=== PATIENT | female | born 1980 | race Caucasian/White ===

== ENCOUNTER → 2020-10-16 | Outpatient (CLI) | payer MEDICARE ==
--- NOTE | 2020-10-16 18:15 | US ---
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 Patient has a history of breast cancer. LMP unknown. Patient states she had a bilateral oophorecto my in 2016. Bleeding x 3 weeks. . Hx 2 C Sections. TECHNIQUE: Transvaginal (TV). Date of LMP: Unknown. FINDINGS: EXAM MEASUREMENTS: Uterus: Not well delineated. There is bulky rounded appearance to the region of the cervix measuring 4.6 x 5.3 x 4.2 cm. Just above and towards the right, there is a contiguous heterogeneous slightly irregular area measuri ng 3.9 x 2.8 x 2.7 cm. Endometrial Stripe: Not well seen. Right Ovary: Removed per patient. Left Ovary: Removed per patient. No pelvic free fluid seen. IMPRESSION: 1. Bulky rounded appearance to the region of the cervix measuring 5.3 cm. The uterus itself is not we ll seen. Correlate with speculum exam to exclude any cervical mass. 2. The uterus itself is not well delineated. If no prior hysterectomy, consider female pelvic MRI to better delineate these structures. 3. A heterogeneous irregular area measuring 3.9 x 2.8 x 2.7 cm just above the cervix off to the right . Unclear etiology. Query shrunken and abnormal uterus versus some type of pelvic mass. Again, MRI ma y be helpful.
== END | disposition home or self-care (01) ==
LOC: RADUSWWP 16:42
PROVIDERS: ATTEND Internal Medicine Hematology & Oncology
DX: Z15.02 Genetic susceptibility to malignant neoplasm of ovary (principal)
CPT/HCPCS: 76830

== ENCOUNTER → 2020-10-23 | Outpatient (CLI) | payer MEDICARE ==
--- NOTE | 2020-10-23 12:35 | XR ---
EXAMINATION TYPE: XR chest 2V DATE OF EXAM: 10/23/2020 COMPARISON: NONE HISTORY: History of breast cancer. TECHNIQUE: Frontal and lateral views of the chest are obtained. FINDINGS: Mild biapical pleural/parenchyma scarring. There is no suspicious new focal air space opac ity, pleural effusion, or pneumothorax seen. The cardiac silhouette size is within normal limits. The osseous structures are intact. Asymmetry to the breast shadows with overlying implants. IMPRESSION: No acute cardiopulmonary process.
--- NOTE | 2020-10-23 12:53 | CT ---
EXAMINATION TYPE: CT abdomen pelvis w con DATE OF EXAM: 10/23/2020 HISTORY: post menopausal bleeding, and genetic predisposition to ovarian neoplasm. Personal history o f breast cancer. History of bilateral nephrectomy 2016. CT DLP: 1435mGycm Automated Exposure Control for Dose Reduction was Utilized. CONTRAST: CT scan of the abdomen and pelvis is performed with IV Contrast, patient injected with 100 mL of Isov ue 300. COMPARISON: Pelvic ultrasound one week ago. FINDINGS: LUNG BASES: No significant abnormality is appreciated. LIVER/GB: No significant abnormality is appreciated. PANCREAS: No significant abnormality is seen. SPLEEN: No significant abnormality is seen. ADRENALS: No significant abnormality is seen. KIDNEYS: Symmetric cortical medullary uptake and excretion without concerning solid or cystic renal m ass, suggestion of symmetric mild to minimal bilateral hydronephrosis. Visualization of bilateral ure ters without obstructing mass or calculus. There is 6 mm nonobstructing left renal calculus upper to midpole level coronal image 55 BOWEL: Oral contrast reaches level proximal transverse colon. No suspicious small or large bowel dila tation. Stomach is poorly distended and less slightly suboptimally evaluated. Slightly low lying cecu m into the right pelvis. Normal-appearing appendix coronal image 37 for reference UTERUS/ADNEXA: Anteverted uterus. Central endometrium towards the fundus measures up to 7 mm coronal image 50. This measures up to 10 mm inferiorly coronal image 51 with abrupt cut off. The lower uterin e segment into the cervix shows heterogeneous prominence measuring 4.7 cm craniocaudal dimension sagi ttal image 35 x 6.3 cm transversely by 4.5 cm AP diameter axial image 70. Small foci of air along the vaginal canal are present inferiorly to this. Single left-sided pelvic phlebolith on axial image 74. LYMPH NODES: No greater than 1cm abdominal or pelvic lymph nodes are appreciated. OSSEOUS STRUCTURES: No significant abnormality is seen. OTHER: Moderate to large sized umbilical hernia containing fat and tiny umbilical vessels.. IMPRESSION: Prominence of the lower uterine segment/cervix in which cervical neoplasm needs to be str ongly considered. Correlate clinically. Pelvic MRI can be performed to further evaluate if desired.
== END ==
LOC: RADCTMAIN 10:40
PROVIDERS: ATTEND Obstetrics & Gynecology
DX: N95.0 Postmenopausal bleeding (principal); R19.00 Intra-abdominal and pelvic swelling, mass and lump, unspecified site; Z85.3 Personal history of malignant neoplasm of breast; Z90.13 Acquired absence of bilateral breasts and nipples; C53.9 Malignant neoplasm of cervix uteri, unspecified; Z90.5 Acquired absence of kidney
CPT/HCPCS: 74177; 71046; Q9967

== ENCOUNTER → 2021-01-05 | Outpatient (CLI) | payer MEDICARE, OTHER ==
--- NOTE | 2021-01-06 02:24 | MR ---
EXAMINATION TYPE: MR pelvis wo/w con DATE OF EXAM: 01/05/2021 COMPARISON: 3 views HISTORY: Endocervix stage 3 ca, hx of breast ca CONTRAST: Standard multiplanar, multisequence MRI departmental protocol utilizing 8.5 mL intravenous Gadavist g adolinium contrast. There is 6.5 x 3.6 cm irregular mass at the vaginal vault consistent with a cervical mass. This mass measures 6.7 x 5.4 cm on previous exam. There appears to be hysterectomy. Rectum appears normal. Ther e is no free fluid in the pelvis. The bladder distends smoothly. Urinary bladder wall is intact. Cerv ical mass is mostly enhancing. Enhancement pattern is more uniform than last exam. The bony pelvis is intact. I see no adenopathy along the pelvic sidewall. There is no inguinal hernia . Sacroiliac joints appear normal. Hip joints appear normal. IMPRESSION: Cervical mass consistent with malignant tumor that is slightly smaller than previous exam. No extensi on seen.
== END | disposition home or self-care (01) ==
LOC: RADMRIMAIN 08:30
PROVIDERS: ATTEND Radiology Radiation Oncology
DX: C53.1 Malignant neoplasm of exocervix (principal); Z01.812 Encounter for preprocedural laboratory examination; Z85.3 Personal history of malignant neoplasm of breast
CPT/HCPCS: 72197; U0003; C9803; U0005; A9585

== ENCOUNTER → 2021-02-23 | Outpatient (CLI) | payer MEDICARE ==
--- NOTE | 2021-02-25 09:55 | PE ---
EXAMINATION TYPE: PET CT fusion skull to thigh DATE OF EXAM: 02/23/2021 CLINICAL HISTORY: Cervical cancer progress study. Completed radiation and chemotherapy treatment 3 we eks ago. History of right breast cancer 2014 treated with bilateral mastectomy. TECHNIQUE: Following the intravenous administration of 11.16 mCi of F-18 FDG, whole body images are performed from the skull base to the midthigh. Images are reviewed on the computer in the coronal, axial, and sagittal planes. Reconstructed rotating images are created on independent workstation and reviewed on the computer. A non-contrast CT is performed in conjunction with the PET scan. Blood g lucose level equals 107. COMPARISON: Outside PET/CT November 09, 2020. CT abdomen and pelvis October 23, 2020. More recent outs maris MRI abdomen and pelvis FINDINGS: SKULL BASE AND NECK: No new areas of suspicious hypermetabolic uptake. CHEST, MEDIASTINUM, AND HILAR REGION: No new areas of suspicious hypermetabolic uptake. ABDOMEN AND PELVIS: Marked improvement in abnormal hypermetabolic uptake and diminished size to the c ervical mass or neoplasm measuring approximately 3.8 x 2.8 cm current study axial image 227. No resid ual abnormal hypermetabolic uptake identified at this level. There is normal excretion in the bladder and more prominent nonspecific uptake within the lumen of the adjacent sigmoid rectal colon. No residual suspicious external iliac chain lymph nodes bilaterally near image 219 current study. Pro minent lymph nodes prior study left greater than right have decreased in size. No new areas of abnormal hypermetabolic uptake. OSSEOUS STRUCTURES: No new areas of abnormal hypermetabolic uptake. OTHER CT: Bilateral breast implants are redemonstrated. Persistent moderate-sized umbilical hernia co ntaining fat and tiny mesenteric vessels. IMPRESSION: Complete positive treatment response as detailed above. No new or residual areas of abnor mal hypermetabolic uptake noted.
== END | disposition home or self-care (01) ==
LOC: RADPETMAIN 11:55
PROVIDERS: ATTEND Radiology Radiation Oncology
DX: C53.0 Malignant neoplasm of endocervix (principal); Z85.3 Personal history of malignant neoplasm of breast; Z90.13 Acquired absence of bilateral breasts and nipples
CPT/HCPCS: 78815; A9552

== ENCOUNTER → 2021-06-01 | Outpatient (CLI) | payer MEDICARE | END | disposition home or self-care (01) | LOC: RADPETMAIN 13:24 | PROVIDERS: ATTEND Radiology Radiation Oncology | DX: Z53.9 Procedure and treatment not carried out, unspecified reason (principal) ==

== ENCOUNTER → 2021-06-08 | Outpatient (CLI) | payer MEDICARE ==
--- NOTE | 2021-06-12 06:25 | PE ---
EXAMINATION TYPE: PET CT fusion skull to thigh DATE OF EXAM: 06/08/2021 COMPARISON: Prior PET/CT February 23, 2021 and older studies HISTORY: Cervical cancer diagnosed 2020 completed chemotherapy and radiation in January 2021, history o f right-sided breast cancer treated 2013 and 2014. BRCA1 positive. TECHNIQUE: Following the intravenous administration of 13.12 mCi of F-18 FDG, whole body images are performed from the skull base to the midthigh. Images are reviewed on the computer in the coronal, a xial, and sagittal planes. Reconstructed rotating images are created on independent workstation and reviewed on the computer. A localization and attenuation correction CT is performed in conjunction with the PET scan. Blood glucose level equals 100 SCAN: Subsequent Scan FINDINGS: SKULL BASE AND NECK: No new areas of suspicious hypermetabolic uptake. CHEST, MEDIASTINUM, AND HILAR REGION: No new areas of suspicious hypermetabolic uptake. ABDOMEN AND PELVIS: Stable mildly prominent cervix axial image 179 without new abnormal hypermetaboli c uptake identified at this level. There is normal excretion in the bladder and nonspecific uptake wi thin the lumen of the adjacent sigmoid rectal colon. No recurrent suspicious external iliac chain lymph nodes . No new areas of abnormal hypermetabolic uptake. OSSEOUS STRUCTURES: No new areas of abnormal hypermetabolic uptake. OTHER CT: Bilateral subpectoral breast implants are redemonstrated. Stable 6 mm nonobstructing left r enal calculus on axial image 143. Persistent moderate-sized umbilical hernia containing fat and tiny mesenteric vessels. Single left-sided pelvic phleboliths axial image 231 redemonstrated IMPRESSION: Complete positive treatment response as detailed above remains present. No new or recurre nt areas of abnormal hypermetabolic uptake identified on today's study.
== END | disposition home or self-care (01) ==
LOC: RADPETMAIN 12:49
PROVIDERS: ATTEND Radiology Radiation Oncology
DX: C53.0 Malignant neoplasm of endocervix (principal); C77.9 Secondary and unspecified malignant neoplasm of lymph node, unspecified; N20.0 Calculus of kidney; K42.9 Umbilical hernia without obstruction or gangrene; Z85.3 Personal history of malignant neoplasm of breast; Z85.42 Personal history of malignant neoplasm of other parts of uterus
CPT/HCPCS: 78815; A9552

== ENCOUNTER → 2021-09-18 | Outpatient (CLI) | payer MEDICARE, OTHER ==
--- NOTE | 2021-09-18 22:39 | CT ---
EXAMINATION TYPE: CT abdomen pelvis w con DATE OF EXAM: 09/18/2021 HISTORY: obs for mets ; h/o breast and cervical cancer CT DLP: 797mGycm Automated Exposure Control for Dose Reduction was Utilized. CONTRAST: CT scan of the abdomen and pelvis is performed with IV Contrast, patient injected with 100 mL of Isov ue 300. COMPARISON: CT abdomen and pelvis October 23, 2020. Most recent PET CT June 08, 2021 and older [facility]. FINDINGS: LUNG BASES: Partial visualization of right breast implant. LIVER/GB: Contracted gallbladder current study. PANCREAS: Fullness to the body and tail of pancreas is redemonstrated and stable presumed benign. SPLEEN: No significant abnormality is seen. ADRENALS: No significant abnormality is seen. KIDNEYS: Symmetric cortical medullary uptake and excretion without concerning solid or cystic renal m ass. Suggestion of stable symmetric mild to minimal bilateral hydronephrosis. No significant hydroure ter. There is stable 6 mm nonobstructing left renal calculus upper pole level coronal image 61. BOWEL: Oral contrast reaches level of hepatic flexure. No suspicious small or large bowel dilatation. Slightly low lying cecum into the right pelvis is redemonstrated. UTERUS/ADNEXA: Anteverted small size uterus redemonstrated. Central endometrium remains prominent but stable measuring up to 16 mm axial image 67 from most recent PET/CT. Appearance of cervix unchanged from most recent PET/CT. Single left-sided pelvic phlebolith on axial image 74. LYMPH NODES: No new greater than 1cm abdominal or pelvic lymph nodes are appreciated. OSSEOUS STRUCTURES: No significant abnormality is seen. OTHER: Moderate to large sized umbilical hernia containing fat and tiny umbilical vessels is redemons trated IMPRESSION: Overall stable findings from most recent PET/CT. Findings consistent with treated cervica l neoplasm redemonstrated. No new or enlarging mass or adenopathy identified to suggest active neopla stic recurrence.
== END | disposition home or self-care (01) ==
LOC: RADCTMAIN 17:23
PROVIDERS: ATTEND Obstetrics & Gynecology
DX: C53.9 Malignant neoplasm of cervix uteri, unspecified (principal); Z85.3 Personal history of malignant neoplasm of breast
CPT/HCPCS: 74177; Q9967

== ENCOUNTER → 2022-02-07 | Outpatient (CLI) | payer MEDICARE, OTHER ==
--- NOTE | 2022-02-08 08:30 | CT ---
EXAMINATION TYPE: CT abdomen pelvis wo/w con DATE OF EXAM: 02/07/2022 COMPARISON: 09/18/2021 INDICATION: obs for mets. neoplasm endocervix DLP: 1333.40 mGycm, Automated exposure control for dose reduction was used. CONTRAST: 100 mL of Isovue 300. Study performed with Oral Contrast TECHNIQUE: Axial images were obtained from above the diaphragm to the pubic rami in the axial plane a t 5 mm thick sections. Reconstructed images are reviewed on the computer in the coronal plane. FINDINGS: Limited CT sections are obtained the lung bases. The lung bases are clear. CT ABDOMEN: Liver: Normal Spleen: Normal Pancreas: Normal Adrenal glands: The adrenal glands are normal. Gallbladder: Normal Kidneys: No masses are evident. No hydronephrosis is present. No cysts are present. There is a 0.7 cm cortical calcification within the upper pole lateral left kidney. Aorta: Normal Inferior vena cava: Normal. CT PELVIS: There is an anterior abdominal wall periumbilical hernia containing mesenteric fat. The opening appears narrow as 0.7 cm. Loops of bowel within the abdomen and pelvis are normal. There are loops of bowel which are incom pletely distended or lack oral contrast limiting their evaluation. Segment of sigmoid colon within it s midportion is nondistended. Some focal wall thickening is not excluded. Consider additional workup of this region series 3 image 66. Appendix: Normal as visualized. Urinary bladder: Normal. Genitourinary structures: Uterus appears normal. Adnexal regions are normal. Osseous structures: No suspicious lytic or sclerotic lesions. IMPRESSIONS: 1. No suspicious changes for metastatic disease. Patient's known endocervical cancer is not visualiz ed on this exam. 2. Incomplete distention versus focal thickening within the sigmoid colon. Consider additional workup for neoplasm. 3. Nonobstructing left renal calcification
== END | disposition home or self-care (01) ==
LOC: RADCTMAIN 15:41
PROVIDERS: ATTEND Radiology Radiation Oncology
DX: C53.0 Malignant neoplasm of endocervix (principal); N28.89 Other specified disorders of kidney and ureter
CPT/HCPCS: 74178; Q9967

== ENCOUNTER → 2022-06-07 | Outpatient (CLI) | payer MEDICARE, OTHER ==
--- NOTE | 2022-06-07 14:11 | CT ---
EXAMINATION TYPE: CT ChestAbdPelvis w con DATE OF EXAM: 06/07/2022 COMPARISON: CT abdomen pelvis dated 02/07/2022. No prior CT chest. HISTORY: cervical and breast CA CT DLP: 850.9 mGycm Automated exposure control for dose reduction was used. CONTRAST: CT scan of the chest, abdomen and pelvis is performed with Oral Contrast and with IV Contrast, patien t injected with 70 mL of Isovue 300. FINDINGS: CT chest: The lungs are clear of consolidative, interstitial or masslike density. There is no pleural effusion, pleural thickening or pneumothorax. Great vessels chest are normal and there is no mediastinal, hilar or the osseous structures are intac t. CT abdomen and pelvis: There is no gallstone, gallbladder wall thickening, distention or pericholecystic fluid. There is no biliary ductal dilatation. No focal masses are seen, pancreas, spleen or adrenal glands. Caliber the abdominal aorta is. There is no retroperitoneal or no solid renal masses are. The bowel loops are normal in caliber and there is no evidence of obstruction. No inflammatory change s are identified in the bowel wall or mesentery. There is no free intraperitoneal air or fluid. There is no pelvic mass or adenopathy. The osseous structures are intact. IMPRESSION: 1. No evidence of metastatic disease. 2. Stable abdomen and pelvis. 3. Stable nonobstructing 7.7 mm left renal calculus.
== END | disposition home or self-care (01) ==
LOC: RADCTMAIN 12:08
PROVIDERS: ATTEND Radiology Radiation Oncology
DX: C77.9 Secondary and unspecified malignant neoplasm of lymph node, unspecified (principal); N20.0 Calculus of kidney; Z85.41 Personal history of malignant neoplasm of cervix uteri; Z90.710 Acquired absence of both cervix and uterus; Z90.722 Acquired absence of ovaries, bilateral
CPT/HCPCS: 71260; 74177; Q9967

== ENCOUNTER 2022-06-18 10:09 | Inpatient (IN) | payer MEDICARE, OTHER ==
--- NOTE | 2022-06-18 15:53 | ED ---
General Adult HPI - General Chief complaint: Abdominal Pain Stated complaint: abd pain Time Seen by Provider: 06/18/22 13:38 Source: patient Mode of arrival: ambulatory Limitations: no limitations - History of Present Illness Initial comments: Patient is 42 year old female who presents to the with pelvic pain and vaginal discharge ongoing for approximately 3 weeks. She reports that she saw her radiology oncologist approximately 2-3 weeks ago for similar complaints he completed a pelvic exam showing a small hole in her cervix area where her cervix was removed but reports that her other findings were stable except mild WBC elevation on UA which she was given macrobid for and then also given [place] for pain. She reports that she called her primary care provider and oncologist recommended presenting to the emergency room for further evaluation. She reports that her pain can be intense in the pelvic region at time. She is also complaining of occasional constipation. She reports decreased appetite causing weight loss and nausea without vomiting. She denies any fevers or chills. She was having overactive bladder but reports that upon taking tolterodine which was prescribed by her oncologist 2 doses she had an increase in her abdominal pain and consequently stopped taking the medication. In addition to her cervical cancer she has a past medical history of breast cancer and is BRCA positive on hormone receptor placido treatment. She also has a past medical history significant for chemo-induced neuropathy. - Related Data Home Medications Medication Instructions Recorded Confirmed Escitalopram [Lexapro] 10 mg PO HS 06/18/22 06/18/22 Exemestane [Aromasin] 25 mg PO HS 06/18/22 06/18/22 Allergies Allergy/AdvReac Type Severity Reaction Status Date / Time No Known Allergies Allergy Verified 06/18/22 17:23 Review of Systems ROS Statement: Those systems with pertinent positive or pertinent negative responses have been documented in the HPI. ROS Other: All systems not noted in ROS Statement are negative. Past Medical History Past Medical History: Cancer Additional Past Medical History / Comment(s): breast cancer has port in chest, neuropathy hands and feet-pt states d/t chemotherapy tx- per pt chemo to resume after delivery History of Any Multi-Drug Resistant Organisms: None Reported Past Surgical History: Breast Surgery, Section Additional Past Surgical History / Comment(s): rt breast mastectomy, port placment Past Anesthesia/Blood Transfusion Reactions: No Reported Reaction Past Psychological History: No Psychological Hx Reported Smoking Status: Never smoker Past Alcohol Use History: None Reported Past Drug Use History: None Reported - Past Family History Mother Family Medical History: No Reported History General Exam Limitations: no limitations General appearance: alert, in no apparent distress Head exam: Present: atraumatic, normocephalic, normal inspection Eye exam: Present: normal appearance, PERRL, EOMI. Absent: scleral icterus, conjunctival injection, periorbital swelling ENT exam: Present: normal exam, mucous membranes moist Neck exam: Present: normal inspection. Absent: tenderness, meningismus, lymphadenopathy Respiratory exam: Absent: respiratory distress, accessory muscle use GI/Abdominal exam: Present: soft, tenderness, normal bowel sounds. Absent: distended, guarding, rebound, rigid External exam: Present: normal external exam Speculum exam: Present: other (Cervix absent. Erythema at the posterior aspect of the vaginal vault with questionable fistula opening approximately 1 cm in diameter rounded without any overt drainage noted.) By manual exam: Present: adnexal tenderness, uterine tenderness Extremities exam: Present: normal inspection. Absent: pedal edema, joint swelling Back exam: Present: normal inspection Neurological exam: Present: alert, oriented X3, CN II-XII intact Psychiatric exam: Present: normal affect, normal mood Skin exam: Present: warm, dry, intact, normal color. Absent: rash Course Vital Signs 06/18/22 06/18/22 10:25 17:34 Temperature 97.8 F 98.1 F Pulse Rate 101 H 94 Respiratory 20 16 Rate Blood Pressure 133/66 102/72 O2 Sat by Pulse 100 98 Oximetry Medical Decision Making - Medical Decision Making 42-year-old presenting to the emergency room with complaints of vaginal discharge, foul odor bloody impairment at times with excessive flow ongoing for 3 weeks which was worked up by her radiologist oncologist a few weeks ago and seems to be worsening from a pain standpoint. Pelvic exam revealed inflammation in the posterior vaginal vault near where the cervix would be along the vaginal wall consistent with where the cervix would have been. No discharge at this time noted. Severe pelvic tenderness noted on exam. Per patient's request case discussed with Dr. Godwin who is her surgical oncologist and gynecology specialists from [facility]. He recommended admission to either [facility] or locally for pain management IV antibiotics and further evaluation and treatment. Recommendations from the patient's surgical biofuels production manager oncologist discussed with her at length. She wishes to remain locally. Dr. Garza about the Dr. Wolff in her previous surgery. Will contact him along with [facility] who covers for the patient's primary care provider for admission for pain management and further workup and evaluat ion. Case discussed with Aaliyah Kingston covering for [facility] who admits for patient primary care provider. She reports that she will call back regarding as needed for patient. Patient to be admitted for further evaluation by GI and IV antibiotics. Urinalysis positive for worsening UTI, leukocytosis worsening. Will start on PID treatment with ceftriaxone, doxycycline and Flagyl. Will continue pain medication of morphine along with Zofran as needed for nausea. Case discussed with Dr. Hamilton. - Lab Data Result diagrams: 06/18/22 17:21 06/18/22 17:21 Lab Results 06/18/22 06/18/22 06/18/22 Range/Units 17:21 17:21 17:21 WBC 12.5 H (3.8-10.6) k/uL RBC 4.86 (3.80-5.40) m/uL Hgb 15.1 (11.4-16.0) gm/dL Hct 45.9 (34.0-46.0) % MCV 94.5 (80.0-100.0) fL MCH 31.0 (25.0-35.0) pg MCHC 32.8 (31.0-37.0) g/dL RDW 12.4 (11.5-15.5) % Plt Count 412 (150-450) k/uL MPV 6.5 Neutrophils % 71 % Lymphocytes % 13 % Monocytes % 7 % Eosinophils % 8 % Basophils % 1 % Neutrophils # 8.8 H (1.3-7.7) k/uL Lymphocytes # 1.6 (1.0-4.8) k/uL Monocytes # 0.9 (0-1.0) k/uL Eosinophils # 0.9 H (0-0.7) k/uL Basophils # 0.1 (0-0.2) k/uL Sodium 138 (137-145) mmol/L Potassium 4.5 (3.5-5.1) mmol/L Chloride 98 (98-107) mmol/L Carbon Dioxide 25 (22-30) mmol/L Anion Gap 15 mmol/L BUN 12 (7-17) mg/dL Creatinine 0.71 (0.52-1.04) mg/dL Est GFR (CKD-EPI)AfAm >90 (>60 ml/min/1.73 sqM) Est GFR (CKD-EPI)NonAf >90 (>60 ml/min/1.73 sqM) Glucose 99 (74-99) mg/dL Calcium 10.3 H (8.4-10.2) mg/dL Total Bilirubin 0.4 (0.2-1.3) mg/dL AST 24 (14-36) U/L ALT 18 (4-34) U/L Alkaline Phosphatase 121 (38-126) U/L Total Protein 8.1 (6.3-8.2) g/dL Albumin 4.9 (3.5-5.0) g/dL Urine Color Yellow Urine Appearance Cloudy H (Clear) Urine pH 6.5 (5.0-8.0) Ur Specific [place] 1.016 (1.001-1.035) Urine Protein Trace H (Negative) Urine Glucose (UA) Negative (Negative) Urine Ketones 1+ H (Negative) Urine Blood Moderate H (Negative) Urine Nitrite Negative (Negative) Urine Bilirubin Negative (Negative) Urine Urobilinogen <2.0 (<2.0) mg/dL Ur Leukocyte Esterase Large H (Negative) Urine RBC 47 H (0-5) /hpf Urine WBC 40 H (0-5) /hpf Urine WBC Clumps Occasional H (None) /hpf Ur Squamous Epith Cells 1 (0-4) /hpf Urine Mucus Rare H (None) /hpf Disposition Clinical Impression: Pelvic pain, UTI (urinary tract infection), Vaginal discharge Disposition: ADMITTED IP TO THIS HOSP Condition: Stable Is patient prescribed a controlled substance at d/c from ED?: No Referrals: Francisca Stephenson MD [Primary Care Provider] - 1-2 days Time of Disposition: 18:38
[2022-06-18] MEDS ORDERED: ONDANSETRON 4 MG/2 ML VIAL IVP STA (16:03)
[2022-06-18] MEDS ORDERED: MORPHINE SULFATE 4 MG/ML SYRINGE IV STA (16:03)
[2022-06-18 17:45] LABS: Basophils # (A) 0.1 k/uL (0-0.2); Basophils % (A) 1 %; Eosinophils # (A) 0.9 k/uL (0-0.7); Eosinophils % (A) 8 %; HCT 45.9 % (34.0-46.0); HGB 15.1 gm/dL (11.4-16.0); Lymphocytes # (A) 1.6 k/uL (1.0-4.8); Lymphocytes % (A) 13 %; MCHC 32.8 g/dL (31.0-37.0); MCV 94.5 fL (80.0-100.0); Mean Platelet Volume 6.5; Monocytes # (A) 0.9 k/uL (0-1.0); Monocytes % (A) 7 %; Neutrophils # (A) 8.8 k/uL (1.3-7.7); Neutrophils % (A) 71 %; Platelet Count 412 k/uL (150-450); RBC 4.86 m/uL (3.80-5.40); RDW 12.4 % (11.5-15.5); WBC 12.5 k/uL (3.8-10.6)
--- NOTE | 2022-06-18 17:49 | US ---
EXAMINATION TYPE: US transvaginal DATE OF EXAM: 06/18/2022 COMPARISON: NONE CLINICAL HISTORY: Pelvic pain. Vaginal discharge. History of breast cancer and cervical cancer. Barney ateral oopherectomy in 2016 due to breast cancer per patient. TECHNIQUE: Transvaginal (TV Date of LMP: Unknown, approximately 20 years ago EXAM MEASUREMENTS: Uterus: 5.6 x 3.9 x 2.5 cm Endometrial Stripe: 0.28 cm Right Ovary: Surgically absent Left Ovary: Surgically absent 1. Uterus: Anteverted wnl 2. Endometrium: wnl 3. Right Ovary: Surgically absent 4. Left Ovary: Surgically absent 5. Bilateral Adnexa: wnl 6. Posterior cul-de-sac: wnl Cervix limited view due to overlying possible air in cervix area. IMPRESSION: No evidence of uterine mass. No endometrial thickening. Bilateral oophorectomy. No adnexal mass. No f ree fluid.
[2022-06-18 17:54] LABS: ALT 18 U/L (4-34); AST 24 U/L (14-36); African American GFR (CKD) >90 (>60 ml/min/1.73 sqM); Albumin 4.9 g/dL (3.5-5.0); Alkaline Phosphatase 121 U/L (38-126); Anion Gap 15 mmol/L; Blood Urea Nitrogen 12 mg/dL (7-17); Calcium 10.3 mg/dL (8.4-10.2); Carbon Dioxide 25 mmol/L (22-30); Chloride 98 mmol/L (98-107); Glucose 99 mg/dL (74-99); Non-African American GFR(CKD) >90 (>60 ml/min/1.73 sqM); Potassium 4.5 mmol/L (3.5-5.1); Sodium 138 mmol/L (137-145); Total Bilirubin 0.4 mg/dL (0.2-1.3); Total Protein 8.1 g/dL (6.3-8.2)
[2022-06-18 18:06] LABS: Appearance,Urine Cloudy (Clear); Bilirubin,Urine Negative (Negative); Blood,Urine Moderate (Negative); Color,Urine Yellow; Glucose,Urine (UA) Negative (Negative); Ketones,Urine 1+ (Negative); Leukocyte Esterase,Urine Large (Negative); Mucus,Urine Rare /hpf; Nitrite,Urine Negative (Negative); PH, Urine 6.5 (5.0-8.0); Protein,Urine Trace (Negative); RBC,Urine 47 /hpf (0-5); Specific Gravity,Urine 1.016 (1.001-1.035); Squamous Epithelial Cell,Urine 1 /hpf (0-4); Urobilinogen,Urine <2.0 mg/dL (<2.0); WBC,Urine 40 /hpf (0-5)
[2022-06-18] MEDS ORDERED: NALOXONE 0.4 MG/ML 1 ML VIAL IV PRN (18:32)
[2022-06-18] MEDS ORDERED: metroNIDAZOLE-NS PMX 500 MG in SALINE 1 100ML.BAG IVPB STA (18:34)
[2022-06-18] MEDS: MORPHINE SULFATE 4 MG/ML SYRINGE IV PRN (19:10)
[2022-06-18] MEDS: DOXYCYCLINE 100 MG CAP PO SCH (21:06)
[2022-06-19] MEDS: MORPHINE SULFATE 4 MG/ML SYRINGE IV PRN ×5 (01:17→23:03)
[2022-06-19] MEDS: ACETAMINOPHEN TAB 325 MG TAB PO PRN ×2 (04:33→08:39)
[2022-06-19] MEDS: DOXYCYCLINE 100 MG CAP PO SCH ×2 (08:37→22:19)
[2022-06-19] MEDS ORDERED: diphenhydrAMINE 25 MG CAP PO STA (10:50)
[2022-06-19] MEDS: ONDANSETRON 4 MG/2 ML VIAL IVP PRN ×2 (10:58→19:58)
[2022-06-19 11:54] VITALS: RESP 16
--- NOTE | 2022-06-19 12:12 | P.HPIM ---
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 Patient has had double mastectomy. She also has history of cervical cancer and underwent surgery and bilateral oophrectomy in 2016. She is a former smoker. She presents with complaints of pelvic pain and vaginal discharge that has been ongoing for about 3 weeks. States discharge is a brownish color. Patient saw her radiology oncologist about 2 to 3 weeks ago with similar complaints and had a pelvic exam that revealed a hole in cervix where her cervix was removed. She had a urinalysis performed then also and was placed on macrobid outpatient. She also saw specialist at [facility] for this 1 week ago and they had recommended PET scan and cervical biopsy, she has not had that scheduled yet. She gets routine pap smears with Dr Davalos every 6 weeks. She takes Aramosin daily. She reports increased pain in pelvic region and has decreased appetite with nausea, she has also had weight loss. She does complain of constipation. She reports getting up to urinate 8 to 10 times a night. She was given 2 doses of tolteridone by oncology for overactive bladder states she had increased abdominal pain and stopped taking medication. She does report 9/10 pressure in her pubic region and states the pressure radiates all the way through to her back/tail bone area. She is getting morphine for this and reports pain improving to 2/3 out of 10. She also reports migraine, has history of migraine. She is receiving zofran for nausea which is helping. Patient had chest abdomen pelvis CT done 2 weeks ago outpatient showing no evidence for metastatic disease, stable abdomen and pelvis there is stable non obstructing 7.7 mm left renal calculus. Patient had transvaginal ultrasound performed showing no evidence of uterine mass, no endometrial thickening. There is bilateral oophrectomy. No adnexal mass. No free fluid. View of cervix was limited due to overlying possible air in the cervix area. She presents with luekocytosis of 12.5, calcium is high at 10.3. Urinalysis showing cloudy urine, trace protein, moderate blood, 1+ ketones, large leukocyte esterase, 47 RBC, WBC 40, occassional WBC clumps and rare mucous . Urine culture is pending. Blood cultures are also pending. She has been placed on empiric antibiotic coverage with IV ceftriaxone and oral doxycycline. She also received a one time dose of metronidazole in the E.C. She is admitted for abdominal pain and work up for vaginal bleeding/discharge post cervix removal. Gynecology has been consulted. Patient is afebrile, heart rate 83, blood pressure 124/68, 95% on room air. REVIEW OF SYSTEMS: CONSTITUTIONAL: No fever, no malaise, no fatigue. HEENT: No recent visual problems or hearing problems. Denied any sore throat. CARDIOVASCULAR: No chest pain, orthopnea, PND, no palpitations, no syncope. PULMONARY: No shortness of breath, no cough, no hemoptysis. GASTROINTESTINAL: No diarrhea, reports nausea, vomiting, pelvic abdominal pressure and urinary frequency NEUROLOGICAL: No headaches, no weakness, no numbness. HEMATOLOGICAL: Denies any bleeding or petechiae. GENITOURINARY: Denies any burning micturition, frequency, or urgency. MUSCULOSKELETAL/RHEUMATOLOGICAL: Denies any joint pain, swelling, or any muscle pain. ENDOCRINE: Denies any polyuria or polydipsia. The rest of the 14-point review of systems is negative. PHYSICAL EXAMINATION: GENERAL: The patient is alert and oriented x3, not in any acute distress. Well developed, well nourished. HEENT: Pupils are round and equally reacting to light. EOMI. No scleral icterus. No conjunctival pallor. Normocephalic, atraumatic. No pharyngeal erythema. No thyromegaly. CARDIOVASCULAR: S1 and S2 present. No murmurs, rubs, or gallops. PULMONARY: Chest is clear to auscultation, no wheezing or crackles. ABDOMEN: Soft, tender to palpation pelvic region, nondistended, normoactive bowel sounds. No palpable organomegaly. MUSCULOSKELETAL: No joint swelling or deformity. EXTREMITIES: No cyanosis, clubbing, or pedal edema. NEUROLOGICAL: Gross neurological examination did not reveal any focal deficits. SKIN: No rashes. Assessment and Plan Assessment Pelvic/Abdominal pressure with associated nausea Vaginal discharge/bleeding ongoing work up Urinary frequency rule out retention Leukocytosis Hypercalcemia History cervical cancer post surgery and chemotherapy History breast cancer with bilateral mastectomy currently on immunotherapy daily History of bilateral oophrectomy Peripheral neuropathy chemotherapy induced History of migraines Former tobacco use GI prophylaxis Full Code Plan Pain management and antiemetics are on board IV fluids have been ordered Diet as tolerated Abdomen xray ordered Pending evaluation by gynecology Urine culture pending, continue empiric antibiotic coverage Blood culture pending Benadryl/Tramadol for migraine Patient is supposed to be scheduled for cervical biopsy/PET scan outpatient The impression and plan of care has been dictated by Terri Guidry, Nurse Practitioner as directed. Dr. Ruddy MD I have performed a history and physical examination and medical decision making of this patient, discussed the same with the dictator, and agree with the dictators assessment and plan as written, documented as a scribe. Based on total visit time, I have performed more than 50% of this visit. Past Medical History Past Medical History: Cancer Additional Past Medical History / Comment(s): breast cancer has port in chest, neuropathy hands and feet-pt states d/t chemotherapy tx- per pt chemo to resume after delivery; cervical cancer History of Any Multi-Drug Resistant Organisms: None Reported Past Surgical History: Breast Surgery, Section, Hysterectomy Additional Past Surgical History / Comment(s): double mastectomy, port placement Past Anesthesia/Blood Transfusion Reactions: No Reported Reaction Past Psychological History: No Psychological Hx Reported Smoking Status: Former smoker Past Alcohol Use History: Occasional Additional Past Alcohol Use History / Comment(s): quit smoking 2012 smoked 15 years on and off 1/2ppd Past Drug Use History: None Reported - Past Family History Mother Family Medical History: No Reported History Medications and Allergies Home Medications Medication Instructions Recorded Confirmed Type Escitalopram [Lexapro] 10 mg PO HS 06/18/22 06/18/22 History Exemestane [Aromasin] 25 mg PO HS 06/18/22 06/18/22 History Allergies Allergy/AdvReac Type Severity Reaction Status Date / Time No Known Allergies Allergy Verified 06/18/22 17:23 Physical Exam Vitals: Vital Signs Temp Pulse Pulse Resp BP BP Pulse Ox 06/19/22 07:55 97.7 F 83 14 123/68 95 06/19/22 05:37 97.7 F 94 18 115/77 96 06/18/22 22:33 97.4 F L 99 16 119/81 96 06/18/22 21:10 97.8 F 82 16 100/71 95 06/18/22 19:10 91 17 115/85 96 06/18/22 17:34 98.1 F 94 16 102/72 98 06/18/22 10:25 97.8 F 101 H 20 133/66 100 Intake and Output 06/18/22 06/19/22 06/19/22 22:59 06:59 14:59 Other: Voiding Method Toilet # Voids 2 Weight 83.915 kg Results CBC & Chem 7: 06/18/22 17:21 06/18/22 17:21 Labs: Abnormal Lab Results - Last 24 Hours (Table) 06/18/22 06/18/22 06/18/22 Range/Units 17:21 17:21 17:21 WBC 12.5 H (3.8-10.6) k/uL Neutrophils # 8.8 H (1.3-7.7) k/uL Eosinophils # 0.9 H (0-0.7) k/uL Calcium 10.3 H (8.4-10.2) mg/dL Urine Appearance Cloudy H (Clear) Urine Protein Trace H (Negative) Urine Ketones 1+ H (Negative) Urine Blood Moderate H (Negative) Ur Leukocyte Esterase Large H (Negative) Urine RBC 47 H (0-5) /hpf Urine WBC 40 H (0-5) /hpf Urine WBC Clumps Occasional H (None) /hpf Urine Mucus Rare H (None) /hpf Microbiology - Last 24 Hours (Table) 06/18/22 17:21 Urine Culture - Preliminary Urine,Voided Thrombosis Risk Factor Assmnt - Choose All That Apply Any of the Below Risk Factors Present?: Yes Each Factor Represents 1 point: Age 41-60 years, Obesity (BMI >25) Other Risk Factors: No Other congenital or acquired thrombophilia - If yes, enter type in comment: No Thrombosis Risk Factor Assessment Total Risk Factor Score: 2 Thrombosis Risk Factor Assessment Level: Low Risk
[2022-06-19] MEDS: SODIUM CHLORIDE 0.9% 1,000 ML IV SCH (12:44)
[2022-06-19] MEDS ORDERED: traMADol 50 MG TAB PO SCH (13:00)
--- NOTE | 2022-06-19 13:03 | XR ---
EXAMINATION TYPE: XR abdomen 2V DATE OF EXAM: 06/19/2022 12:35 PM INDICATION: Patient age:Female; 42 years old; Reason for study: abdominal/pelvic pain; . COMPARISON: CT chest abdomen pelvis 06/07/2022. TECHNIQUE: Two views of the abdomen were obtained. FINDINGS: The bowel gas pattern is nonspecific without dilated loops of small or large bowel. There i s no evidence for organomegaly or pneumoperitoneum. The osseous structures are intact. Left upper p ole renal calculus measuring 5 mm. Pelvic phlebolith present. Fecal material and gas are demonstrated throughout the colon and rectum. Mild multilevel disc degeneration changes throughout the spine. IMPRESSION: 1. Nonspecific bowel gas pattern without radiographic evidence for acute process. 2. Left upper pole renal calculus
[2022-06-19 13:09] VITALS: BMI 28.1
[2022-06-19] MEDS ORDERED: traMADol 50 MG TAB PO PRN (15:54)
[2022-06-19] MEDS ORDERED: bisacodyL 10 MG SUPP RECTAL STA (16:25)
--- NOTE | 2022-06-19 19:22 | P.OBCN ---
History of Present Illness Consult date: 06/19/22 Requesting physician: Zulay Fox Reason for consult: pelvic pain, pelvic infection Chief complaint: Pelvic and abdominal pain with bloody/watery vaginal discharge History of present illness: This is a 42-year-old female who is well-known to [facility] oncology, Dr. Godwin, and radiation oncology with Dr. Davalos. She has a history of BRCA1 and was diagnosed with breast cancer in 2013. She was treated with chemotherapy and bilateral mastectomy along with chest wall radiation. She had a section and oophorectomy performed in 2015 but her uterus was not removed. 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 She underwent chemoradiation along with brachytherapy and finished this in January 2021. She has seen Dr. Davalos for this bloody discharge and cramping about a month ago and he stated it was some scar tissue. She has since had vomiting and pain and has lost 10-12 pounds over the last couple weeks. She does not want to eat anything or drink anything because when her bladder is full it causes more pain. She states she is going to the bathroom approximately 10 times a night. Her last bowel movement was 2 days ago. She stated she did see Dr. Davalos earlier today who was going to contact Dr. Godwin about possible transfer but has not heard back from him. Pelvic ultrasound done on admission shows a normal size uterus with endometrial stripe of 0.28 cm and both ovaries surgically absent. There is no evidence of uterine mass or free fluid noted. Review of Systems Constitutional: Reports chronic pain, Reports fatigue, Reports night sweats, Reports weight loss Gastrointestinal: Reports abdominal pain, Reports constipation, Reports nausea, Reports vomiting Genitourinary: Reports abnormal vaginal bleeding, Reports dysuria, Reports pelvic pain, Reports urinary frequency, Reports vaginal discharge, Reports vaginal odor Past Medical History Past Medical History: Cancer Additional Past Medical History / Comment(s): breast cancer has port in chest, neuropathy hands and feet-pt states d/t chemotherapy tx; cervical cancer History of Any Multi-Drug Resistant Organisms: None Reported Past Surgical History: Breast Surgery, Section Additional Past Surgical History / Comment(s): double mastectomy, port placement; bilateral oophorectomy Past Anesthesia/Blood Transfusion Reactions: No Reported Reaction Past Psychological History: No Psychological Hx Reported Smoking Status: Former smoker Past Alcohol Use History: Occasional Additional Past Alcohol Use History / Comment(s): quit smoking 2013 smoked 15 years on and off 1/2ppd Past Drug Use History: None Reported - Past Family History Mother Family Medical History: No Reported History Medications and Allergies Home Medications Medication Instructions Recorded Confirmed Type Escitalopram [Lexapro] 10 mg PO HS 06/18/22 06/18/22 History Exemestane [Aromasin] 25 mg PO HS 06/18/22 06/18/22 History Allergies Allergy/AdvReac Type Severity Reaction Status Date / Time No Known Allergies Allergy Verified 06/18/22 17:23 Exam Osteopathic Statement: *. No significant issues noted on an osteopathic structural exam other than those noted in the History and Physical/Consult. Vital Signs Temp Pulse Pulse Resp BP BP Pulse Ox 06/19/22 17:51 97.8 F 80 16 116/76 98 06/19/22 16:32 98.5 F 89 16 105/69 97 06/19/22 11:26 97.8 F 70 16 103/68 97 06/19/22 07:55 97.7 F 83 14 123/68 95 06/19/22 05:37 97.7 F 94 18 115/77 96 06/18/22 22:33 97.4 F L 99 16 119/81 96 06/18/22 21:10 97.8 F 82 16 100/71 95 Intake and Output 06/19/22 06/19/22 06/19/22 06:59 14:59 22:59 Intake Total 290 Balance 290 Intake: Intake, IV Titration 290 Amount Sodium Chloride 0.9% 1, 240 000 ml @ 75 mls/hr IV . [id number] HANS Rx#:[id number] [id number] 1 gm In 50 Sodium Chloride 0.9% 50 ml @ 100 mls/hr IVPB DAILY HANS Rx#:[id number] Other: Voiding Method Toilet # Voids 2 1 Weight 83.915 kg Exam is not performed on the patient since she is requesting to go to [facility]. Results Result Diagrams: 06/18/22 17:21 06/18/22 17:21 Microbiology - Last 24 Hours (Table) 06/18/22 17:21 Urine Culture - Preliminary Urine,Voided Assessment and Plan (1) Cervical cancer Current Visit: Yes Status: Acute Code(s): C53.9 - MALIGNANT NEOPLASM OF CERVIX UTERI, UNSPECIFIED SNOMED Code(s): 597664637 (2) Pelvic pain Current Visit: Yes Status: Acute Code(s): R10.2 - PELVIC AND PERINEAL PAIN SNOMED Code(s): 58063776 (3) UTI (urinary tract infection) Current Visit: Yes Status: Acute Code(s): N39.0 - URINARY TRACT INFECTION, SITE NOT SPECIFIED SNOMED Code(s): 67424646 (4) Vaginal discharge Current Visit: Yes Status: Acute Code(s): N89.8 - OTHER SPECIFIED NONINFLAMMATORY DISORDERS OF VAGINA SNOMED Code(s): 021876664 Plan: I personally spoke with Dr. Godwin after seeing this patient. He was under the assumption after speaking with Dr. Davalos earlier today that the patient had to go home to make arrangements for her family and then she was supposed to be coming to [facility]. Apparently this was never communicated to the patient. I did talk with the patient and advised her that after she does go home and make arrangements for kids and dogs but she should go down to [facility] ER on [address]. They will contact Dr. Godwin for ad mission. I communicated this to her nurse and they are contacting her admitting doctor for discharge. Patient is aware to go to [place] ER after she is discharged.
[2022-06-19] MEDS ORDERED: ESCITALOPRAM 10 MG TAB PO SCH (21:00)
[2022-06-19] MEDS: FAMOTIDINE 20 MG/2 ML VIAL IV SCH (22:05)
[2022-06-19 22:41] LABS: Glucose,Whole Blood 116 mg/dL (70-110)
--- NOTE | 2022-06-19 22:50 | P.DS ---
Providers Date of admission: 06/18/22 19:43 Attending physician: Zulay Fox Consults: 06/18/22 18:32 Consult Physician Routine Consulting Provider: Thang Garza Consult Reason/Comments: vaginal bleed post cervix removal with possible fistula Do you want consulting provider notified?: Yes Primary care physician: Francisca Stephenson Hospital Course: Diagnosis Pelvic/Abdominal pressure with associated cramping Vaginal discharge/bleeding ongoing work up Urinary frequency Nausea with vomiting, decreased appetite and weight loss Leukocytosis Hypercalcemia History of BRCA1 mutation History of breast cancer in 2013 with chemo/radiation and bilateral mastectomy History of with bilateral oophorectomy in 2015 History of cervical cancer in 2020 with chemoradiation/brachytherapy Peripheral neuropathy chemotherapy induced History of migraines Former tobacco use GI prophylaxis Full Code Discharge Disposition Patient is pending hospital to hospital transfer to [facility] in [place] to be further evaluated by Dr Ortiz who is patients known manager study-oncologist. 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 Patient has had double mastectomy. She also has history of with bilateral oophrectomy in 2015. She was diagnosed with cervical cancer in 2020. She is a former smoker. She presents with complaints of pelvic pain and vaginal discharge that has been ongoing for about 3 weeks. States discharge is a brownish color. Patient saw her radiology oncologist about 2 to 3 weeks ago with similar complaints and had a pelvic exam that revealed scar tissue. She had a urinalysis performed then also and was placed on macrobid outpatient. She also saw specialist at [facility] for this 1 week ago and they had recommended PET scan and cervical biopsy, she has not had that scheduled yet. She gets routine pap smears with Dr Davalos every 6 months. She takes Aramosin daily. She reports increased pain in pelvic region and has decreased appetite with nausea, she has also had weight loss. She does complain of constipation, last BM 2 days ago. She reports getting up to urinate 8 to 10 times a night. She was given 2 doses of tolteridone by oncology for overactive bladder states she had increased abdominal pain and stopped taking medication. She does report 9/10 pressure in her pubic region and states the pressure radiates all the way through to her back/tail bone area. She is getting morphine for this and reports pain improving to 2/3 out of 10. She also reports migraine, has history of migraine. Migraine is unrelieved with current medications. She is receiving zofran for nausea which is helping. She did receive a suppository for constipation found on xray. Patient had chest abdomen pelvis CT done 2 weeks ago outpatient showing no evidence for metastatic disease, stable abdomen and pelvis there is stable non obstructing 7.7 mm left renal calculus. Patient had transvaginal ultrasound performed showing no evidence of uterine mass, no endometrial thickening. There is bilateral oophrectomy. No adnexal mass. No free fluid. View of cervix was limited due to overlying possible air in the cervix area. She presents with luekocytosis of 12.5, calcium is high at 10.3. Hgb stable at 15.1. Urinalysis showing cloudy urine, trace protein, moderate blood, 1+ ketones, large leukocyte esterase, 47 RBC, WBC 40, occassional WBC clumps and rare mucous. Urine culture is pending. Blood cultures are also pending. She has been placed on empiric antibiotic coverage with IV ceftriaxone and oral doxycycline. She also received a one time dose of metronidazole in the E.C. She is admitted for abdominal pain and work up for vaginal bleeding/discharge post cervix removal. Abdominal xray was completed which shows nonspecific bowel gas pattern without radiographic evidence for acute process, there is left upper pole renal calculus measuring 5 mm. There is fecal material and gas demonstrated throughout the spine. Patient is afebrile, heart rate 83, blood pressure 124/68, 95% on room air. She was admitted with consult placed to Gynecology. Patient did talk with Dr Davalos earlier today who had spoke with her manager study-oncologist Dr Ortiz who had recommended patient to be discharged and drive herself to [facility] for ad mission. This was not communicated until later this evening. After discussing with Dr Davalos as well as reviewing gynecology notes, spoke with transfer team and requested transfer for manager study-onc services. After reaching out to Dr Ortiz, patient is pending acceptance/bed at [facility] in [place]. Patient feels she is in no condition to drive and experiencing significant abdominal discomfort. Please see medical H and P for additional information The impression and plan of care has been dictated by Terri Guidry, Nurse Practitioner as directed. Dr. Ruddy MD I have performed a history and physical examination and medical decision making of this patient, discussed the same with the dictator, and agree with the dictators assessment and plan as written, documented as a scribe. Based on total visit time, I have performed more than 50% of this visit. Plan - Discharge Summary New Discharge Prescriptions: No Action Exemestane [Aromasin] 25 mg PO HS Escitalopram [Lexapro] 10 mg PO HS Discharge Medication List Escitalopram [Lexapro] 10 mg PO HS 06/18/22 [History] Exemestane [Aromasin] 25 mg PO HS 06/18/22 [History] Follow up Appointment(s)/Referral(s): Francisca Stephenson MD [Primary Care Provider] - 1-2 days
[2022-06-20] MEDS: MORPHINE SULFATE 4 MG/ML SYRINGE IV PRN ×2 (05:17→09:00)
[2022-06-20] MEDS: SODIUM CHLORIDE 0.9% 1,000 ML IV SCH (05:21)
[2022-06-20] MEDS: FAMOTIDINE 20 MG/2 ML VIAL IV SCH (07:54)
[2022-06-20] MEDS: DOXYCYCLINE 100 MG CAP PO SCH (07:55)
[2022-06-20] MEDS ORDERED: LACTULOSE 20 GM/30 ML CUP PO ONE (10:49)
[2022-06-20 11:00] LABS: Basophils # (A) 0.06 X 10*3/uL (0.00-0.10); Basophils % (A) 0.6 %; Eosinophils # (A) 0.78 X 10*3/uL (0.04-0.35); Eosinophils % (A) 8.4 %; HCT 38.1 % (37.2-46.3); HGB 12.6 g/dL (12.0-15.0); Immature Grans, Automated 0.3 %; Lymphocytes % (A) 16.1 %; MCH 31.2 pg (27.0-32.0); MCHC 33.1 g/dL (32.0-37.0); MCV 94.3 fL (80.0-97.0); Monocytes # (A) 1.24 X 10*3/uL (0.20-1.00); Monocytes % (A) 13.3 %; NRBC Per 100 WBC 0 /100 WBCS (0.0-0.0); Neutrophils % (A) 61.3 %; Platelet Count 316 X 10*3/uL (140-440); RBC 4.04 X 10*6/uL (4.10-5.20); RDW 12.6 % (11.5-14.5); WBC 9.31 X 10*3/uL (4.50-10.00)
[2022-06-20 11:45] VITALS: BP 115/78; PULSE 86; TEMP 97.7
[2022-06-20] MEDS ORDERED: KETOROLAC 15 MG/ML 1 ML VIAL IVP SCH (12:00)
--- NOTE | 2022-06-21 16:04 | P.DS ---
Providers Date of admission: 06/18/22 19:43 Attending physician: Zulay Fox Consults: 06/18/22 18:32 Consult Physician Routine Consulting Provider: Thang Garza Consult Reason/Comments: vaginal bleed post cervix removal with possible fistula Do you want consulting provider notified?: Yes 06/20/22 10:42 Consult Physician Routine Consulting Provider: Geovani Davalos Consult Reason/Comments: patient of record Do you want consulting provider notified?: Yes Primary care physician: Francisca Stephenson Hospital Course: Diagnosis Pelvic/Abdominal pressure with associated cramping Vaginal discharge/bleeding gynecology following has not been diagnosed by gynecology. Urinary frequency Nausea with vomiting, decreased appetite and weight loss Leukocytosis Hypercalcemia History of BRCA1 mutation History of breast cancer in 2013 with chemo/radiation and bilateral mastectomy History of with bilateral oophorectomy in 2015 History of cervical cancer in 2020 with chemoradiation/brachytherapy Peripheral neuropathy chemotherapy induced History of migraines Former tobacco use GI prophylaxis Full Code Discharge Disposition Patient is stable for discharge and to follow up with her primary care and her application packaging consultant-oncologist. She was pending transfer to [facility] and bed was unavailable. Patient has been receiving narcotics for pain management and vaginal discharge has been stable since admission although continues and is malodorous. She is discharged on antibiotics. She was instructed to report to the [facility] ER to see her application packaging consultant oncology Dr Ortiz for further testing and recommendations. This was discussed with her by Dr Davalos who patient also follows with, she has also been in communication with Dr. Ortiz and also gynecology. Hospital Course This is a 42 year old female who follows with Dr Stpehenson, past medical history of breast cancer and BRCA positive with port in chest, neuropathy to hands and feet secondary to chemotherapy. Patient has had double mastectomy. She also has history of with bilateral oophrectomy in 2015. She was diagnosed with cervical cancer in 2020. She is a former smoker. She presents with complaints of pelvic pain and vaginal discharge that has been ongoing for about 3 weeks. States discharge is a brownish color. Patient saw her radiology oncologist about 2 to 3 weeks ago with similar complaints and had a pelvic exam that revealed scar tissue. She had a urinalysis performed then also and was placed on macrobid outpatient. She also saw specialist at [facility] for this 1 week ago and they had recommended PET scan and cervical biopsy, she has not had that scheduled yet. She gets routine pap smears with Dr Davalos every 6 months. She takes Aramosin daily. She reports increased pain in pelvic region and has decreased appetite with nausea, she has also had weight loss. She does complain of constipation, last BM 2 days ago. She reports getting up to urinate 8 to 10 times a night. She was given 2 doses of tolteridone by oncology for overactive bladder states she had increased abdominal pain and stopped taking medication. She does report 9/10 pressure in her pubic region and states the pressure radiates all the way through to her back/tail bone area. She is getting morphine for this and reports pain improving to 2/3 out of 10. She also reports migraine, has history of migraine. Migraine is unrelieved with current medications. She is receiving zofran for nausea which is helping. She did receive a suppository for constipation found on xray. Patient had chest abdomen pelvis CT done 2 weeks ago outpatient showing no ev idence for metastatic disease, stable abdomen and pelvis there is stable non obstructing 7.7 mm left renal calculus. Patient had transvaginal ultrasound performed showing no evidence of uterine mass, no endometrial thickening. There is bilateral oophrectomy. No adnexal mass. No free fluid. View of cervix was limited due to overlying possible air in the cervix area. She presents with luekocytosis of 12.5, calcium is high at 10.3. Hgb stable at 15.1. Urinalysis showing cloudy urine, trace protein, moderate blood, 1+ ketones, large leukocyte esterase, 47 RBC, WBC 40, occassional WBC clumps and rare mucous. Blood culture and urine culture are negative. She has been placed on empiric antibiotic coverage with IV ceftriaxone and oral doxycycline. She also received a one time dose of metronidazole in the E.[facility]. She is admitted for abdominal pain and work up for vaginal bleeding/discharge post cervix removal. Abdominal xray was completed which shows nonspecific bowel gas pattern without radiographic evidence for acute process, there is left upper pole renal calculus measuring 5 mm. There is fecal material and gas demonstrated throughout the spine. Patient is afebrile, heart rate 83, blood pressure 124/68, 95% on room air. She was admitted with consult placed to Gynecology. 06/20/2022 Patient did talk with Dr Davalos on day of admission who had spoke with her application packaging consultant- oncologist Dr Ortiz who had recommended patient to be discharged and drive herself to [facility] for admission. This was not communicated until later in the evening. After discussing with Dr Davalos as well as reviewing gynecology notes, pursued transfer to [facility] with Dr Ortiz admitting, however no bed was available and patient became frustrated. She spoke with her outside care team and felt her pain was controlled enough to be discharge. Her sister is at the bedside as well and is agreeing with discharge. Most recent labs showing white count has resolved now 9.31, hgb stable at 12.6, neutrophils have normalized to 5.70. Kidney function within normal limits. Covid negative. She is hemodynamically stable, she has remained afebrile, heart rate 86, blood pressure 115/78, 97% room air. Continues on antibiotics. Instructed to repeat labs. Per patient she is going to see Dr. Ortiz down at [facility]. She denies chest pain, no shortness of breath, she has nausea, denies vomiting. No bowel movement has received suppository x 2 and also a dose of lactulose, she does not want any further medications to have a BM. She is alert x 3 focal neurological exam is negative. Lungs are clear, S1 S2 auscultated, abdomen is soft with mild pelvic tenderness. She is ambulating without difficulty. Headache has improved somewhat. She is discharged. The impression and plan of care has been dictated by Terri Guidry, Nurse Practitioner as directed. Dr. Ruddy MD I have performed a history and physical examination and medical decision making of this patient, discussed the same with the dictator, and agree with the dictators assessment and plan as written, documented as a scribe. Based on total visit time, I have performed more than 50% of this visit. Patient Condition at Discharge: Stable Plan - Discharge Summary New Discharge Prescriptions: New Cefdinir [Omnicef] 300 mg PO Q12HR 8 Days #16 capsule Acetaminophen Tab [Tylenol] 650 mg PO Q4HR PRN tab PRN Reason: Fever And/ Or Pain Doxycycline [Vibramycin] 100 mg PO BID 8 Days #16 cap Continue Exemestane [Aromasin] 25 mg PO HS Escitalopram [Lexapro] 10 mg PO HS Discharge Medication List Escitalopram [Lexapro] 10 mg PO HS 06/18/22 [History] Exemestane [Aromasin] 25 mg PO HS 06/18/22 [History] Acetaminophen Tab [Tylenol] 650 mg PO Q4HR PRN tab 06/20/22 [Rx] Cefdinir [Omnicef] 300 mg PO Q12HR 8 Days #16 capsule 06/20/22 [Rx] Doxycycline [Vibramycin] 100 mg PO BID 8 Days #16 cap 06/20/22 [Rx] Follow up Appointment(s)/Referral(s): Ellie Ortiz MD [REFERRING] - 1 Week Geovani Davalos MD [STAFF PHYSICIAN] - 1 Week Francisca Stephenson MD [Primary Care Provider] - 1-2 days Ambulatory/Diagnostic Orders: Basic Metabolic Panel [LAB.AMB] Time Frame: 2 Days, Location: None Selected Complete Blood Count w/diff [LAB.AMB] Time Frame: 2 Days, Location: None Selected Activity/Diet/Wound Care/Special Instructions: Patient will be discharged to follow up with Dr Ortiz for further care at [facility] She is stable for discharge from [facility] and will need to follow up with her Change Manager-Oncologist once discharged Per patient, Dr Anoop Balderas patient has been instructed by her oncology team to report to [facility] and Dr Ortiz will make further recommendations for her. Patient will also follow up with Dr Davalos Follow up with primary care Dr Francisca Stephenson Discharge Disposition: HOME SELF-CARE
== END 2022-06-20 14:51 | disposition home or self-care (01) | DRG 760 ==
LOC: EC 10:09 → 5NMEDONC 19:43
PROVIDERS: ADMIT Internal Medicine; ATTEND Internal Medicine
DX: N89.8 Other specified noninflammatory disorders of vagina (principal); N39.0 Urinary tract infection, site not specified; Z20.822 Contact with and (suspected) exposure to COVID-19; G20 Parkinson's disease; T45.1X5A Adverse effect of antineoplastic and immunosuppressive drugs, initial encounter; E83.52 Hypercalcemia; N20.0 Calculus of kidney; R51.9 Headache, unspecified; G62.9 Polyneuropathy, unspecified; N32.81 Overactive bladder; K59.00 Constipation, unspecified; G43.909 Migraine, unspecified, not intractable, without status migrainosus; Z15.01 Genetic susceptibility to malignant neoplasm of breast; Z90.722 Acquired absence of ovaries, bilateral; Z90.13 Acquired absence of bilateral breasts and nipples; Z85.41 Personal history of malignant neoplasm of cervix uteri; Z85.3 Personal history of malignant neoplasm of breast; Z87.891 Personal history of nicotine dependence; Z90.710 Acquired absence of both cervix and uterus; Z98.891 History of uterine scar from previous surgery; X58.XXXA Exposure to other specified factors, initial encounter; Z92.21 Personal history of antineoplastic chemotherapy; Z92.3 Personal history of irradiation
CPT/HCPCS: 36415; 74019; 76830; 80053; 81001; 85025; 87040; 87086; 87635; 96365; 96367; 96375; 96376; 99285

== ENCOUNTER → 2022-06-28 | Outpatient (CLI) | payer MEDICARE, OTHER ==
--- NOTE | 2022-06-30 23:36 | PE ---
EXAMINATION TYPE: PET CT fusion skull to thigh DATE OF EXAM: 06/28/2022 CLINICAL INDICATION:Female, 42 years old with history of Z08; cervical cancer TECHNIQUE: Following the intravenous administration of 12.14 mCi of F-18 FDG, whole body images are performed from the skull base to the midthigh. Images are reviewed on the computer in the coronal, axial, and sagittal planes. Reconstructed rotating images are created on independent workstation and reviewed on the computer. A non-contrast CT is performed in conjunction with the PET scan. Glucose level 107 mg/dL COMPARISON: CT 06/07/2022, PET/CT 06/08/2021, FINDINGS: Mediastinal SUV mean is 1.4. Hepatic parenchyma SUV mean is 2.1. SKULL BASE AND NECK: No suspicious FDG activity. CHEST, MEDIASTINUM, AND HILAR REGION: No suspicious FDG activity. ABDOMEN AND PELVIS: The vagina demonstrates somewhat thickened mucosal appearance when comparing to p rior PET/CT with s somewhat diffuse FDG activity max SUV 5.4. OSSEOUS STRUCTURES: No suspicious FDG activity. OTHER CT: Bilateral breast implants which appear intact. Left nonobstructing calculus measuring 8 mm. Fat-containing umbilical hernia. The uterus is atrophic. Circumferential rectal wall thickening summer uring up to 10 mm. IMPRESSION: Mild vagina mucosal thickening which is more pronounced on today's exam given some air within the vag lester. There is mild FDG activity the within the vagina adams itself. This is not definitely seen on pr ior PET/CT. Direct visualization recommended. No suspicious lymphadenopathy or other suspicious areas of FDG activity..
== END | disposition home or self-care (01) ==
LOC: RADPETMAIN 15:04
PROVIDERS: ATTEND Obstetrics & Gynecology
DX: C53.0 Malignant neoplasm of endocervix (principal); C77.9 Secondary and unspecified malignant neoplasm of lymph node, unspecified; N76.89 Other specified inflammation of vagina and vulva; Z08 Encounter for follow-up examination after completed treatment for malignant neoplasm; Z79.811 Long term (current) use of aromatase inhibitors; Z90.710 Acquired absence of both cervix and uterus; Z90.722 Acquired absence of ovaries, bilateral; Z85.3 Personal history of malignant neoplasm of breast
CPT/HCPCS: 78815; A9552